=== PATIENT | female | born 1980 | race Caucasian/White ===

== ENCOUNTER → 2016-11-15 | Outpatient (CLI) | payer OTHER ==
[~2016-11-15] MED LIST: AMPH20TA2 PO; AMPH30TA2 PO; BUPRTAB51 PO; NAPR-1169 PO
== END | disposition home or self-care (01) ==
LOC: C.PAPS 11:22
PROVIDERS: ATTEND Obstetrics & Gynecology
DX: Z01.419 Encounter for gynecological examination (general) (routine) without abnormal findings (principal); R87.610 Atypical squamous cells of undetermined significance on cytologic smear of cervix (ASC-US)

== ENCOUNTER → 2016-11-15 | Outpatient (CLI) | payer OTHER ==
[2016-11-18 00:49] LABS: CHLAMYDIA TRACH RNA*** NOT DETECTED (NOT DETECTED); GC (NEIS GONORRHOEAE)RNA** NOT DETECTED (NOT DETECTED)
== END | disposition home or self-care (01) ==
LOC: C.LABSPEC 17:45
PROVIDERS: ATTEND Obstetrics & Gynecology
DX: Z11.3 Encounter for screening for infections with a predominantly sexual mode of transmission (principal)

== ENCOUNTER → 2016-11-16 | Outpatient (CLI) | payer OTHER ==
[2016-11-16 13:13] LABS: HEMATOCRIT 41.8 % (37-47); MEAN CELL VOLUME 88.2 fL (80-100); MEAN CORPUSCULAR HEMOGLOBIN 30.6 pg (25-34); MEAN CORPUSCULAR HGB CONC 34.7 g/dl (32-36); MEAN PLATELET VOLUME 13.2 fL (7.4-10.4); PLATELET COUNT 164 K/uL (130-400); RED BLOOD COUNT 4.74 M/uL (4.2-5.4)
[2016-11-16 13:16] LABS: PREG INTERNAL NEGATIVE QC NEG CLEAR BACKGROUND; PREG INTERNAL POSITIVE QC POS CONTROL LINE
[2016-11-17 23:50] LABS: RAPID PLASMA REAGIN NONREACTIVE (NONREACT)
== END | disposition home or self-care (01) ==
LOC: C.LAB1850 11:42
PROVIDERS: ATTEND Obstetrics & Gynecology
DX: Z11.3 Encounter for screening for infections with a predominantly sexual mode of transmission (principal); N92.6 Irregular menstruation, unspecified

== ENCOUNTER → 2016-12-17 | Outpatient (CLI) | payer OTHER ==
[~2016-12-17] VITALS: Ht 160 cm; Wt 78.6 kg
[~2016-12-17] MED LIST changes: +ACET-1256 PO
[2016-12-17 15:37] VITALS: BP 129/80; PULSE 85; Ht 160 cm; Wt 78.6 kg
== END | disposition home or self-care (01) ==
LOC: C.NEUR 14:33
PROVIDERS: ATTEND Physician Assistant
DX: G47.19 Other hypersomnia (principal); G47.11 Idiopathic hypersomnia with long sleep time; G47.419 Narcolepsy without cataplexy

== ENCOUNTER → 2017-01-24 | Outpatient (CLI) | payer OTHER | END | disposition home or self-care (01) | LOC: C.PATHSPEC 14:10 | PROVIDERS: ATTEND Obstetrics & Gynecology | DX: R87.610 Atypical squamous cells of undetermined significance on cytologic smear of cervix (ASC-US) (principal); A63.0 Anogenital (venereal) warts ==

== ENCOUNTER 2017-03-16 19:53 | Emergency (ER) | payer OTHER ==
[~2017-03-16] VITALS: Ht 162.6 cm; Wt 79.1 kg
[~2017-03-16 19:53] MED LIST changes: -ACET-1256 PO; -AMPH30TA2 PO
[2017-03-16 19:58] VITALS: BP 129/96; PULSE 99; TEMP 36.8; O2SAT 97; Ht 162.6 cm; Wt 79.1 kg
[2017-03-16] MEDS ORDERED: AMPH30TA2 PO (20:05)
--- NOTE | 2017-03-16 20:16 | EMERGENCY ROOM VISIT NOTE ---
ED Visit Note First contact with patient: 20:02 CHIEF COMPLAINT: Insect bite on back of neck HISTORY OF PRESENT ILLNESS: This 36-year-old female patient presents to the emergency department 2 days after noticing insect bite on back of her neck. Patient states she initially felt something touch the back of her neck, however is uncertain exactly what this was. Patient states for the past 2 days, she has experienced irritation, slight redness surrounding the lesion, and became concerned when she noticed the center of the lesion turning yellow. Patient denies other symptoms including fever, discharge, drainage, warmth, nausea, vomiting, body aches, or systemic symptoms. Patient denies abscess. Patient states she does feel that her lymph nodes are swollen near the site of the bite. She states she has been using "some cream" she got from someone at work. Patient denies abnormal sensation in the area. She states pain is dull, and rates it 4/10. REVIEW OF SYSTEMS: A 6 system review of systems was performed with positives and pertinent negatives listed in the history of present illness. All other systems were reviewed and are negative. ALLERGIES: None MEDICATIONS: Adderall, naproxen PMH: Chronic back pain, ADHD SOCIAL HISTORY: She lives locally with her family. She denies drug or tobacco use. Patient does report occasional alcohol use. PHYSICAL EXAM: VITALS: Vitals are noted on the nurse's note and reviewed by myself. Vital signs stable. GENERAL: 36-year-old female, in no acute distress, nondiaphoretic, well- developed well-nourished. LYMPH: Slight enlargement of occipital lymph nodes on the left. No other lymphadenopathy. No tenderness on palpation. SKIN: Approximately 2 cm in diameter lesion on the posterior aspect of middle of neck. Localized erythema surrounding a centralized yellow lesion. No discharge or ulceration. The skin is intact overlying the skin lesion. EMERGENCY DEPARTMENT COURSE: The patient was seen and evaluated as above. I discussed with the patient the symptoms to observe for as well as different treatment options. At this time, I do feel that the infection is localized, however I am a bit concerned that the yellowish colored lesion could be the beginning of an ulcer or an abscess. I stressed with the patient that she needs to keep a extremely close eye on this lesion, and follow up immediately for any concerning symptoms. I do feel that the local infection can be managed with topical Bactroban ointment at this time. A dose was applied in the emergency department, and patient was provided with the tube of medication to be sent home with. I also urged the patient to follow up with her primary care provider for further evaluation. The patient was discharged home in good condition. DIAGNOSIS: Insect bite, local infection DIFFERENTIAL DIAGNOSIS: Spider bite, cellulitis, abscess, systemic infection, and others DISCHARGE INSTRUCTIONS & TREATMENT: You have been prescribed Bactroban (mupirocin) Ointment. This is an antibiotic ointment that will help to prevent the development of an infection at the site of the bite. After you have cleaned the site with soap and water and dried the area thoroughly, you should apply a layer of the ointment to the site of the bite twice daily. You should apply a dressing over the site to keep it clean from contamination. Continue to monitor the site for increased redness, swelling, drainage, pus, lymphadenopathy, abscess formation. If you experience any of these symptoms, return to the emergency department for further evaluation and treatment. You should follow up with your PCP in 2-3 days for recheck of the wound. You may use warm, moist compresses on the wound for discomfort. For pain control, you can use the following bnkp-lvf-fczuziq medicines (if >12 yo): - Regular strength (325mg/tab) Tylenol (acetaminophen) 2 tabs every 4-6 hours as needed. Do not exceed 12 tablets in a 24 hour period. Avoid taking more than 3 grams (3000 mg) of Tylenol per day. This includes any other sources of acetaminophen you may take on a regular basis. - Regular strength (200 mg/tab) Advil (ibuprofen) 2-3 tabs every 4-6 hours as needed. Do not exceed a dose of 3200 mg per day. Current/Historical Medications Scheduled Amphetamine-Dextroamphetamine 20MG (Adderall 20MG), 20 MG PO BID Amphetamine-Dextroamphetamine 30MG (Adderall 30MG), 30 MG PO BID Naproxen (Naprosyn), 500 MG PO BID Allergies Coded Allergies: No Known Allergies (Verified , 09/28/16) Vital Signs Date Time Temp Pulse Resp B/P (MAP) Pulse Ox O2 Delivery O2 Flow Rate FiO2 03/16/17 19:58 36.8 99 16 129/96 97 Room Air Departure Information Impression Primary Impression: Insect bites Additional Impression: Local skin infection Dispostion Home / Self-Care Condition GOOD Referrals Jackelyn Guajardo DO (PCP) Patient Instructions My [facility] Additional Instructions You have been prescribed Bactroban (mupirocin) Ointment. This is an antibiotic ointment that will help to prevent the development of an infection at the site of the bite. After you have cleaned the site with soap and water and dried the area thoroughly, you should apply a layer of the ointment to the site of the bite twice daily. You should apply a dressing over the site to keep it clean from contamination. Continue to monitor the site for increased redness, swelling, drainage, pus, lymphadenopathy, abscess formation. If you experience any of these symptoms, return to the emergency department for further evaluation and treatment. You should follow up with your PCP in 2-3 days for recheck of the wound. You may use warm, moist compresses on the wound for discomfort. For pain control, you can use the following dteq-bcy-taprsua medicines (if >12 yo): - Regular strength (325mg/tab) Tylenol (acetaminophen) 2 tabs every 4-6 hours as needed. Do not exceed 12 tablets in a 24 hour period. Avoid taking more than 3 grams (3000 mg) of Tylenol per day. This includes any other sources of acetaminophen you may take on a regular basis. - Regular strength (200 mg/tab) Advil (ibuprofen) 2-3 tabs every 4-6 hours as needed. Do not exceed a dose of 3200 mg per day. Problem Qualifiers Primary Impression: Insect bites Encounter type: initial encounter Qualified Codes: W57.XXXA - Bitten or stung by nonvenomous insect and other nonvenomous arthropods, initial encounter
[2017-03-16] MEDS ORDERED: MUPIROCIN 2% OINT 22 GM TUBE EXT STA (20:24)
== END 2017-03-16 20:42 | disposition home or self-care (01) ==
LOC: C.EDB 19:55 → C.EDD 20:42
DX: S10.96XA Insect bite of unspecified part of neck, initial encounter (principal); W57.XXXA Bitten or stung by nonvenomous insect and other nonvenomous arthropods, initial encounter; L08.9 Local infection of the skin and subcutaneous tissue, unspecified; F90.9 Attention-deficit hyperactivity disorder, unspecified type; G89.29 Other chronic pain; Z79.899 Other long term (current) drug therapy

== ENCOUNTER 2017-05-15 02:21 | Emergency (ER) | payer OTHER ==
[~2017-05-15] VITALS: Ht 162.6 cm; Wt 75.5 kg
[~2017-05-15 02:21] MED LIST changes: +AMPH30TA2 PO; -BUPRTAB51 PO
[2017-05-15 02:33] VITALS: TEMP 36.7; Ht 162.6 cm; Wt 75.5 kg
[2017-05-15 04:27] VITALS: BP 139/84; PULSE 95; O2SAT 100
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
== END 2017-05-15 04:28 | disposition home or self-care (01) ==
LOC: C.EDB 02:22
DX: S22.32XA Fracture of one rib, left side, initial encounter for closed fracture (principal); T74.11XA Adult physical abuse, confirmed, initial encounter; Y00.XXXA Assault by blunt object, initial encounter

== ENCOUNTER → 2017-07-12 | Outpatient (CLI) | payer OTHER ==
[~2017-07-12] MED LIST changes: +ACET-1256 PO
--- NOTE | 2017-07-12 15:16 | MAMMOGRAPHY REPORT ---
BILATERAL DIGITAL DIAGNOSTIC MAMMOGRAM TOMOSYNTHESIS WITH CAD AND BILATERAL ULTRASOUND: 07/12/2017 CLINICAL HISTORY: 36-year-old woman with a strong family history of breast cancer presents for annual mammography and bilateral whole breast ultrasound. TECHNIQUE: Bilateral breast tomosynthesis in addition to standard 2D mammography was performed. Curre nt study was also evaluated with a Computer Aided Detection (CAD) system. COMPARISON: Comparison is made to exams dated: 07/28/2016 ultrasound, 07/02/2016 mammogram, and 005 mammogram - [facility]. BREAST COMPOSITION: The tissue of both breasts is heterogeneously dense, which may obscure small mas ses. FINDINGS: There is a stable circumscribed 16 mm dominant mass in the 2:00 to 3:[address] No new suspicious mass, focal area of architectural distortion, asymmetry or microcalcifications are identified in the right breast. There is an increasingly prominent nodular asymmetry in the med ial, far posterior left breast on the CC view measuring approximately 5 x 8 mm. This is thought to p roject along the posterior nipple line or superiorly based on the MLO view. No other obvious new mas s, focal area of distortion, asymmetry or calcifications are seen in the left breast. Real-time high-resolution sonographic evaluation was performed throughout each breast including the r ight and left axilla. The breast parenchymal echotexture is heterogeneousdense. There is no suspic ious lymphadenopathy within the right or left axilla. Scattered anechoic benign cysts are seen bilat erally. There are also solid versus cystic and solid benign-appearing masses bilaterally. In partic ular, in the 12:00 left breast, 2 cm from the nipple, there is a round hypoechoic solid-appearing mas s measuring 8.2 x 7.6 x 10.2 mm. In the 11:00 periareolar left breast the previously described hypoe choic nodular area has more of the appearance of normal breast tissue on the current exam but it curr ently measures 3.6 x 3.6 x 2.7 mm, which is unchanged comparing to the prior exam at which time it me asured 6.1 x 3.1 x 3.8 mm. There is an oval parallel circumscribed benign anechoic simple cyst in th e 10:00 left breast, 8 cm from the nipple, measuring 8.2 x 3.3 x 6.0 mm, thought to correlate with th e increasingly prominent nodular asymmetry seen in the medial posterior breast on the CC view. This is benign. In the 10:00 to 11:00 periareolar right breast, there is a lobulated predominantly anechoic cystic ap pearing mass within internal nonvascular septation measuring 7.2 x 3.6 x 8.9 mm. This is newly visua lized. A hypoechoic solid-appearing mass in the 12:00 periareolar right breast is oval, circumscribe d and parallel in orientation. This measures 6.6 x 4.1 x 7.2 mm, previously measured 8.0 x 4.2 x 7.9 mm and is considered stable given slight differences in measuring technique. There is another oval parallel circumscribed isoechoic solid mass in the 2:00 periareolar right breast, correlating with th e dominant mammographic mass, measuring 14.3 x 7.9 x 17.9 mm, previously measured 12.9 x 7.5 x 16.4 m m and is unchanged. A cyst with internal layering debris is seen in the 8:00 right breast, 1 cm from the nipple, measuring 6.4 x 6.1 x 6.1 mm. An oval parallel circumscribed solid appearing mass is id entified in the 9:00 right breast, 3 cm from the nipple, measuring 6.9 x 4.3 x 7.0 mm. This is newly visualized. No other suspicious solid or cystic mass is identified. IMPRESSION: ACR-BI-RADS CATEGORY 3: PROBABLY BENIGN, ULTRASOUND ACR-BI-RADS CATEGORY 3: PROBABLY YELENA IGN 1. The bilateral mammograms are generally stable comparing to prior exams. Slight increased nodular ity in the medial posterior left breast identified mammographically is thought to correlate with a be nign anechoic simple cyst identified on ultrasound and considered benign. 2. There are scattered bilateral anechoic benign cyst as well as solid versus cystic and solid benig n-appearing masses in both breasts on whole breast ultrasound. The solid-appearing masses identified in the left 12:00, right 12:00 and 2:00 axes are stable and most likely represent benign fibroadenom as. Another one-year follow-up targeted ultrasound is recommended to ensure at least 2 years of sono graphic stability. A questionable mass versus normal breast tissue in the 11:00 periareolar left grisel ast is less prominent comparing to the prior ultrasound, but this can also be reassessed at follow-up . There is a newly visualized probable complicated cyst in the 10:00 periareolar right breast and an other probable solid mass that appears similar to the other solid masses in both breasts in the 9:00 right breast, 3 cm from the nipple, for which a follow-up targeted ultrasound is recommended in 12 mo nths. Bilateral whole breast screening ultrasound could also be performed during the same appointmen t. These results and recommendations were discussed with the patient at the time of the exam. She tenta tively scheduled a follow-up mammogram and ultrasound appointment prior to leaving our department. Approximately 10% of breast cancers are not detected with mammography. A negative mammographic report should not delay biopsy if a clinically suggestive mass is present. Stephanie Mckeon M.D. ay/:07/12/2017 12:48:28 Senior Project Engineer: Brinda BEAVERS)(Doug), [facility] letter sent: Follow Up Recommended 3 BI-RADS Code: ACR-BI-RADS Category 3: Probably Benign Ultrasound BI-RADS: ACR-BI-RADS Category 3: Pr obably Benign
== END | disposition home or self-care (01) ==
LOC: C.MAMM 11:25
PROVIDERS: ATTEND Nurse Practitioner Adult Health
DX: Z09 Encounter for follow-up examination after completed treatment for conditions other than malignant neoplasm (principal); N64.89 Other specified disorders of breast

== ENCOUNTER 2019-11-07 19:19 | Inpatient (IN) ==
--- NOTE | 2019-11-07 20:27 | Obstetrical Progress Note ---
Date of Service November 07, 2019 Subjective 39 yo @ 40 11/23 presents for mathew bulb induction. History of rapid labor, advanced maternal age, narcolepsy, depression/panic disorder. Results & Data Vital Signs (Past 12 Hours) Vital Signs Temp Pulse Resp BP 11/07/19 19:39 85 132/75 11/07/19 19:32 36.9 C 18 PG Care Time/CCT Total # of Minutes Spent Total Time Spent with Patient: Total time spent is greater than 50% in coordination of care (as documented) at patient's floor/unit and/or counseling patient: Coding
[2019-11-07] MEDS ORDERED: DINOPROSTONE 10 MG INSERT PV ONE (21:27)
[2019-11-07] MEDS ORDERED: OXYTOCIN 30 UNITS/500 ML BAG IV PRN (21:47)
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
[2019-11-07 22:06] LABS: Nucleated RBC # (auto) 0.02 K/uL (0-0); Nucleated RBC % (auto) 0.2 %
[2019-11-07 22:12] LABS: Hematocrit (blood only) 39.8 % (37-47); Mean Corpuscular Hemoglobin 31.4 pg (25-34); Mean Corpuscular Volume 89.2 fL (80-100); RDW Coefficient of Variation 13.1 % (11.5-14.5); RDW Standard Deviation 42.6 fL (36.4-46.3); Red Blood Count 4.46 M/uL (4.2-5.4)
[2019-11-07 22:46] LABS: Mean Corpuscular Hgb Conc 35.2 g/dL (32-36); Mean Platelet Volume 13.4 fL (7.4-10.4); Platelet Count 135 K/uL (130-400); Platelet Estimate Decreased (Normal)
--- NOTE | 2019-11-08 02:21 | Labor Progress Brief Note ---
Date of Service November 08, 2019 Subjective Patient is reporting pain with contractions. FHT Cat 1 [place] Q 4 SVE closed/80/-3 I checked cervix, it is still closed. Discussed with patient that we are hoping that scar tissue will soften and ripen with the cervidil. Will give a dose of Stadol for pain control. Results & Data Vital Signs (Past 12 Hours) Vital Signs Temp Pulse Resp BP 11/07/19 23:05 36.5 C 18 11/07/19 22:23 86 118/70 11/07/19 19:39 85 132/75 11/07/19 19:32 36.9 C 18 Coding Level of Care Code None
[2019-11-08] MEDS: BUTORPHANOL TARTRATE 1 MG/ML VIAL IV PRN ×2 (02:32→07:13)
[2019-11-08] MEDS: LACTATED RINGER'S 1,000 ML IV PRN ×2 (08:45→09:48)
[2019-11-08] MEDS ORDERED: ONDANSETRON INJ 2 MG/ML 2 ML VIAL IV PRN (09:14)
[2019-11-08] MEDS ORDERED: NALOXONE HCL 0.4 MG/1 ML VIAL/CARP IV PRN (09:14)
[2019-11-08] MEDS ORDERED: NALOXONE HCL 1 MG in SODIUM CHLORIDE 0.9% 1000ML 1,000 ML IV PRN (09:14)
[2019-11-08] MEDS ORDERED: fentaNYL 2MCG/ML ROPIV 1.25MG/ML 100 ML BAG EPI PRN (09:14)
[2019-11-08] MEDS ORDERED: ePHEDrine sulfate 50 MG/ML AMP IV PRN (09:14)
[2019-11-08] MEDS ORDERED: DiphenhydrAMINE HCL 50 MG/ML VIAL IV PRN (09:14)
[2019-11-08] MEDS ORDERED: NALBUPHINE HCL INJ 10 MG/ML AMP IV PRN (09:14)
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
[2019-11-08] MEDS ORDERED: fentaNYL citrate 100 MCG/2 ML VIAL ONE (09:41)
[2019-11-08] MEDS ORDERED: ePHEDrine sulfate 50 MG/ML AMP ONE (09:41)
[2019-11-08] MEDS ORDERED: fentaNYL 2MCG/ML ROPIV 1.25MG/ML 100 ML BAG EPI ONE (09:42)
[2019-11-08] MEDS ORDERED: BUPIVACAINE 0.25% 30 ML VIAL ONE (09:42)
[2019-11-08] MEDS ORDERED: OXYTOCIN 30 UNITS/500 ML BAG IV PRN ×2 (10:44→14:37)
--- NOTE | 2019-11-08 10:44 | Labor Progress Brief Note ---
Date of Service November 08, 2019 Subjective Cx now 4-5, 100%. CTX not frequent enough will add pitocin. EFW 7 lbs Results & Data Vital Signs (Past 12 Hours) Vital Signs Temp Pulse Resp BP Pulse Ox 11/08/19 10:41 94 H 96 11/08/19 10:40 108 H 116/66 20 10:37 80 138/80 11/08/19 10:36 79 97 11/08/19 10:31 77 134/71 97 11/08/19 10:29 86 93 11/08/19 10:26 95 H 98 11/08/19 10:25 85 124/76 11/08/19 10:22 83 94 11/08/19 10:21 84 94 11/08/19 10:20 98 H 116/66 11/08/19 10:16 83 95 11/08/19 10:15 78 20 130/75 94 11/08/19 10:11 94 H 97 11/08/19 10:10 73 139/76 11/08/19 10:09 87 93 11/08/19 10:06 82 94 11/08/19 10:05 80 127/68 11/08/19 10:01 92 H 95 11/08/19 10:00 84 20 125/66 11/08/19 09:56 81 125/68 95 11/08/19 09:52 83 94 11/08/19 09:51 93 H 95 11/08/19 09:48 80 135/72 11/08/19 09:46 88 130/71 96 11/08/19 09:45 98.4 F 20 11/08/19 09:44 88 122/69 94 11/08/19 09:42 95 H 101/56 L 11/08/19 09:41 94 H 96 11/08/19 09:40 94 H 123/80 11/08/19 09:38 85 130/67 11/08/19 09:36 102 H 109/54 L 96 11/08/19 09:32 85 139/81 11/08/19 09:31 103 H 96 11/08/19 09:30 91 H 140/76 11/08/19 09:26 108 H 98 11/08/19 09:21 98 H 98 11/08/19 09:14 77 138/84 02/20/20 08:42 91 H 94 02/20/20 08:39 83 96 02/20/20 08:37 88 94 02/20/20 08:34 78 96 02/20/20 08:31 85 94 02/20/20 08:29 80 94 02/20/20 08:26 90 94 02/20/20 08:24 80 96 02/20/20 08:20 88 94 02/20/20 08:19 80 95 02/20/20 08:14 88 96 02/20/20 08:13 82 93 02/20/20 08:09 88 94 02/20/20 08:07 82 94 02/20/20 08:04 79 95 02/20/20 08:02 84 93 02/20/20 07:59 82 93 02/20/20 07:56 81 93 02/20/20 07:54 82 94 02/20/20 07:49 83 94 02/20/20 07:48 77 94 02/20/20 07:44 74 92 02/20/20 07:39 76 91 02/20/20 07:36 93 H 93 02/20/20 07:34 94 H 93 02/20/20 07:32 98.2 F 20 02/20/20 07:29 80 93 02/20/20 07:24 89 94 02/20/20 07:19 91 H 93 02/20/20 07:15 82 94 02/20/20 07:14 82 94 02/20/20 07:09 90 94 02/20/20 07:08 96 H 122/76 02/20/20 07:04 81 95 02/20/20 05:00 98.4 F 18 02/20/20 04:51 83 136/90 02/20/20 04:45 84 96 02/20/20 04:44 84 94 02/20/20 04:40 85 96 02/20/20 04:38 84 94 02/20/20 04:35 80 94 02/20/20 04:31 85 94 02/20/20 04:30 86 93 02/20/20 04:25 84 93 02/20/20 04:20 86 95 02/20/20 04:17 78 94 02/20/20 04:15 77 93 02/20/20 04:10 87 93 02/20/20 04:07 80 94 02/20/20 04:05 89 93 11/08/19 04:00 89 92 11/08/19 03:55 77 95 11/08/19 03:50 85 92 11/08/19 03:45 86 92 11/08/19 03:40 88 92 11/08/19 03:35 76 93 11/08/19 03:30 86 92 11/08/19 03:25 87 91 11/08/19 03:20 92 H 91 11/08/19 03:17 91 H 94 11/08/19 03:15 81 92 11/08/19 03:11 92 H 94 11/08/19 03:10 90 92 11/08/19 03:05 86 93 11/08/19 03:02 84 94 11/08/19 03:00 82 92 11/08/19 02:55 88 92 11/08/19 02:50 96 H 92 11/08/19 02:45 82 94 11/08/19 02:40 87 92 11/08/19 02:36 18 11/08/19 02:35 83 93 11/08/19 02:31 98.4 F 18 11/08/19 02:30 92 H 95 11/08/19 02:25 96 H 94 11/08/19 02:21 86 119/71 11/08/19 02:20 82 95 11/07/19 23:05 97.7 F 18 Coding Level of Care Code None
--- NOTE | 2019-11-08 13:48 | Delivery Summary ---
Vaginal Delivery Summary Date of Service November 08, 2019 Vaginal Delivery Summary Spontaneous vaginal delivery patient was induced for postdates delivered in occiput anterior position after pushing for several contractions initially attempts were made to release the anterior shoulder which was the right shoulder from the pubis but it would not budge as a result I was able to move the posterior shoulder to anterior and a corkscrew maneuver which allowed easy delivery of the baby no excessive force was used and there was a loose nuchal cord that had been passed over the head prior to delivery mouth and then nares had been suctioned by bulb baby was vigorous cord clamped and cut cord gases obtained cord blood obtained placenta removed with gentle traction second-degree tear repaired with 3-0 Vicryl sponge and instrument counts correct estimated blood loss 250ml
[2019-11-08] MEDS ORDERED: DIPHTHERIA/TETANUS/PERTUSSIS 0.5 ML SYR/VIAL IM ONE (14:37)
[2019-11-08] MEDS ORDERED: BENZOCAINE 20% AER SPR 82.5 GM CAN EXT PRN (14:37)
[2019-11-08] MEDS ORDERED: SUPERCREAM 0.870% 15 GM JAR EXT PRN (14:37)
[2019-11-08] MEDS ORDERED: OXYCODONE/ACETAMINOPHEN 5mg/325mg TAB PO PRN (14:37)
[2019-11-08] MEDS ORDERED: HYDROCORTISONE ACETATE 25 MG SUPP PR PRN (14:37)
[2019-11-08 14:47] LABS: Base Excess Cord Arterial Bld -0.6 mEq/L (-9-1.8); CO2 Cord Arterial Blood 60 mmHg (39.1-73.5); HCO3 Cord Arterial Blood 28 mmol/L (19.7-28.5); Oxygen Sat Cord Arterial Blood < 60.0 % (<60); PO2 Cord Arterial Blood 21 mmHg (4.1-31.7); pH Cord Arterial Blood 7.28 (7.1-7.38)
[2019-11-08 14:48] LABS: Base Excess Cord Venous Blood -0.3 mEq/L (-7.7-1.9); Cord Venous Blood HCO3 25 mmol/L (18.4-26.8); Cord Venous Blood PCO2 42 mmHg (30.4-57.2); Cord Venous Blood PO2 35 mmHg (14.1-43.3); Cord Venous Blood pH 7.39 (7.20-7.44)
--- NOTE | 2019-11-08 14:50 | Anesthesia Procedure Note ---
Date of Service November 08, 2019 Anesthesia Post Epidural Note Vital Signs Vital Signs: Temp Pulse Resp BP Pulse Ox 36.9 C 85 20 101/54 L 98 11/08/19 11:59 11/08/19 14:47 11/08/19 14:17 11/08/19 14:47 11/08/19 13:26 Pain Intensity Abdomen: Pain Intensity: 0 Notes Mental Status: alert / awake / arousable and participated in evaluation Nausea / Vomiting: adequately controlled Pain: adequately controlled Airway Patency, RR, SpO2: stable & adequate BP & HR: stable & adequate Hydration State: stable & adequate Neuraxial Anesthesia: was administered and sensory block is resolving Anesthetic Complications: no major complications apparent and Pt Satisfied with anesthetic care Epidural: Removed without complications and With tip intact
[2019-11-08] MEDS: IBUPROFEN 600 MG TAB PO PRN (19:06)
[2019-11-08] MEDS: DOCUSATE SODIUM 100 MG CAP PO SCH (20:13)
[2019-11-08] MEDS: ACETAMINOPHEN 325 MG TAB PO PRN (21:30)
[2019-11-09] MEDS: IBUPROFEN 600 MG TAB PO PRN ×3 (00:08→07:52)
--- NOTE | 2019-11-09 06:29 | Obstetrical Progress Note ---
Date of Service <Michael Charlton DO - Last Filed: 11/09/19 06:30> November 09, 2019 Assessment & Plan <Michael Charlton DO - Last Filed: 11/09/19 06:30> (1) Prolonged , antepartum: -PPD#1 -Vitals reviewed, WNL (Tmax 36.9) - GBS -, Blood Type B- - Clinically stable. - Feels well today. Eating well, voiding well, ambulating well. - Pain well controlled. - Routine post- care - After discharge will have [address] Sade Valladares #:: 1 Subjective <Michael Charlton DO - Last Filed: 11/09/19 06:30> Ambulation: ambulating normally Voiding: no voiding problems Passing Gas:: No Diet Tolerance:: regular diet Lochia:: Moderate Feeding Type:: bottle feeding Current Pain Level(1-10): 2 (improved with analgesics) Patient is a 39 PPD#1. Patient states that she is feeling well today and that her pain is well controlled. She has no other complaints at this time. Constitutional: no fever and no chills Respiratory: no cough, no dyspnea and no wheezing Cardiovascular: no chest pain, no dyspnea, no palpitations, no edema and no calf pain Breast: no breast pain Gastrointestinal: no abdominal pain, no nausea and no vomiting Genitourinary (female): no dysuria and no difficulty urinating Neurologic: no headache(s) Physical Exam <DO Gilma Westbrook Last Filed: 11/09/19 06:30> Constitutional WD/WN, vitals as above Respiratory normal respiratory effort, lungs clear to auscultation Cardiovascular Rate/Rhythm: regular rate and regular rhythm Heart Sounds: normal S1 and normal S2; no click, no gallop, no murmur and no cardiac rub Extremities: + edema (+1); no calf tenderness Gastrointestinal (Abdomen) Inspection/Auscultation: abdomen normal to inspection and normal bowel sounds Percussion/Palpation: abdomen soft; abdomen nontender Genitourinary OB Exam Abdomen: + fundal height Fundus: + firm and + relation to umbilicus (- 3); not tender and not boggy Results & Data <Michael FraustonDO Dillard Last Filed: 11/09/19 06:30> Vital Signs (Past 12 Hours) Vital Signs Temp Pulse Resp BP Pulse Ox 11/09/19 04:00 36.4 C L 79 16 109/73 96 11/09/19 00:05 36.3 C L 87 16 113/70 95 11/08/19 20:15 36.5 C 87 18 115/71 94 <Sterling Stuart MD, FACOG - Last Filed: 11/09/19 07:17> Co-Signing Physician Notes Resident Physician Supervision Note: I was present with Dr. Mendieta] during the history and exam. I discussed the case with the resident and agree with the findings and plan as documented in the note. Any exceptions or clarifications are listed here: [None] Documented By: Sterling Stuart MD, FACOG Resident Activity Tracking <Michael Charlton DO - Last Filed: 11/09/19 06:30> Resident Involvement: Resident Care Provided Care Provided: OB Delivery
[2019-11-09 06:45] LABS: Hematocrit (blood only) 34.5 % (37-47); Hemoglobin 11.6 g/dL (12.0-16.0); Mean Corpuscular Hemoglobin 30.5 pg (25-34); Mean Corpuscular Hgb Conc 33.6 g/dL (32-36); Mean Corpuscular Volume 90.8 fL (80-100); Platelet Count 111 K/uL (130-400); RDW Coefficient of Variation 13.5 % (11.5-14.5); RDW Standard Deviation 44.3 fL (36.4-46.3); White Blood Count 11.39 K/uL (4.8-10.8)
[2019-11-09] MEDS: DOCUSATE SODIUM 100 MG CAP PO SCH (07:52)
[2019-11-09] MEDS ORDERED: PRENATAL VITAMIN 1 TAB PO SCH (08:00)
[2019-11-09] MEDS ORDERED: NON-FORMULARY MEDICATION (Prenat.Vits,Cal,Min-Iron-Folic 1 TAB) PO SCH (09:00)
[2019-11-09] MEDS: ACETAMINOPHEN 325 MG TAB PO PRN (11:41)
[2019-11-09] MEDS ORDERED: bisacodyL 5 MG TABEC PO SCH (20:00)
[2019-11-10] MEDS ORDERED: bisacodyL 10 MG SUPP PR PRN (09:00)
== END 2019-11-09 15:05 | disposition home or self-care (01) | DRG 807 ==
LOC: OPB 19:19 → 4S1 19:21 → 4S2 11-08 16:28